=== PATIENT | female | born 1985 | race Native Hawaiian/Other Pacific Islander ===

== ENCOUNTER 2017-01-06 00:18 | Emergency (ER) | payer OTHER ==
[~2017-01-06] VITALS: Ht 160 cm; Wt 93.0 kg
[~2017-01-06 00:18] MED LIST: CELEXA20 MG OR; SINGULAIR10 MG PO; XOPENEX HFA IN; XOPENEX1.25 MG/3 IN
[2017-01-06] MEDS ORDERED: BUPROPN HCL300 MG PO (00:32)
[2017-01-06] MEDS ORDERED: ALLEGRA-D 2424 HOUR PO (00:34)
[2017-01-06 01:15] VITALS: BP 131/89; TEMP 97.9
== END 2017-01-06 01:20 | disposition home or self-care (01) ==
LOC: ED 00:18
DX: J45.901 Unspecified asthma with (acute) exacerbation (principal)
CPT/HCPCS: 99283; J2060

== ENCOUNTER 2017-12-21 12:45 | Inpatient (IN) | payer OTHER ==
[~2017-12-21] VITALS: Ht 160 cm; Wt 103.1 kg
[~2017-12-21 12:45] MED LIST changes: +ALLEGRA-D 2424 HOUR PO; +BUPROPN HCL300 MG PO
[2017-12-21 12:50] VITALS: BP 139/87; TEMP 97.7
[2017-12-21 15:48] VITALS: BP 148/91; TEMP 98.2; Ht 160 cm; Wt 103.1 kg
[2017-12-21 15:56] LABS: PLATELET COUNT 260 K/uL (152-353)
[2017-12-21] MEDS ORDERED: FLUTMIS14 INH ×2 (16:02→18:36)
[2017-12-21 16:10] LABS: POTASSIUM 3.7 mmol/L (3.6-5.2)
[2017-12-21] MEDS ORDERED: ALLEGRA ALRG180 M1 PO (18:35)
[2017-12-21] MEDS ORDERED: XOPENEX0.31 MG INH (18:36)
[2017-12-21 20:00] VITALS: BP 155/87; TEMP 98
[2017-12-22] VITALS: BP 101/54; TEMP 97.7
[2017-12-22 04:00] VITALS: BP 129/77; TEMP 97.6
[2017-12-22 05:41] LABS: PLATELET COUNT 295 K/uL (152-353)
[2017-12-22 05:56] LABS: POTASSIUM 3.8 mmol/L (3.6-5.2)
[2017-12-22 20:00] VITALS: BP 151/84; TEMP 97.5
[2017-12-23] VITALS: BP 135/74; TEMP 97.4
[2017-12-23 03:52] VITALS: BP 99/52; TEMP 98.8
[2017-12-23 06:07] LABS: POTASSIUM 3.5 mmol/L (3.6-5.2)
[2017-12-23 06:24] LABS: PLATELET COUNT 304 K/uL (152-353)
[2017-12-23] MEDS ORDERED: MONT10TA PO (07:56)
[2017-12-23] MEDS ORDERED: MEDROL DOSEPAK4 MG PO (07:56)
[2017-12-23] MEDS ORDERED: XOPENEX HFA IN (07:56)
[2017-12-23] MEDS ORDERED: LEVO250T2 PO (07:56)
[2017-12-23 08:23] VITALS: BP 142/80; TEMP 98.5
--- NOTE | 2017-12-23 10:35 | NUR ---
DC INSTRUCTIONS GIVEN TO PT. PT VERBALIZED UNDERSTANDING. IV DC'D WITH CANNULA INTACT AND SITE CARE PROVIDED. PT AWAITING MEDS TO BE FILLED AT PHARMACY BEFORE LEAVING
--- NOTE | 2017-12-23 10:51 | NUR ---
PT LEFT AMBULATORY WITH TECH AT THIS TIME
[2017-12-23 13:12] VITALS: BP 139/80; TEMP 98.7
== END 2017-12-23 10:00 | disposition home or self-care (01) | DRG 202 ==
LOC: ED 12:45 → MED/SURG 13:40
DX: J45.901 Unspecified asthma with (acute) exacerbation (principal); J98.11 Atelectasis; J45.902 Unspecified asthma with status asthmaticus
CPT/HCPCS: 36415; 80053; 82948; 85027; 94640; 94664; 94668; 94760; 96365; 96366; 96375; 99283; J0132; J1100; J1815; J1885; J1956; J2920

== ENCOUNTER 2019-11-10 12:10 | Inpatient (IN) | payer OTHER ==
[~2019-11-10] VITALS: Ht 160 cm; Wt 101.6 kg
[~2019-11-10 12:10] MED LIST changes: +ALLEGRA ALRG180 M1 PO; +FLUTMIS14 INH; +LEVO250T2 PO; +MEDROL DOSEPAK4 MG PO; +MONT10TA PO; +XOPENEX0.31 MG INH
[2019-11-10 15:16] LABS: PLATELET COUNT 207 K/uL (152-353)
[2019-11-10 15:21] LABS: POTASSIUM 3.2 mmol/L (3.6-5.2)
[2019-11-10 17:02] VITALS: BP 135/74; TEMP 97.9; Ht 160 cm; Wt 101.6 kg
[2019-11-10] MEDS ORDERED: CLARITIN10 M1 PO (17:20)
[2019-11-10] MEDS ORDERED: NEXIUM20 M1 PO (17:22)
[2019-11-10] MEDS ORDERED: BUDE1AER5 INH (17:25)
[2019-11-10] MEDS ORDERED: VITAMIN D PO (17:26)
--- NOTE | 2019-11-10 18:36 | NUR ---
@ 1330 PT WAS ADMITTED TO [facility] PREESURE ROOM 1116 IN STABLE CONDITION. PT A/A/O X 3. NO DISTRESS NOTED UPON ARRIVAL. NO VISITORS ALLOWED AT THIS TIME DUE TO COVID 19. PT ALLERGIC TO PCN; SEAFOOD; ALBUTEROL. TELEMETRY APPLIED WITH O2 MONITORING. PT WAS ORIENTED TO ROOM AND CALL LIGHT SYSTEM. PT WAS INSTRUCTED TO WEAR A MASK WHEN THE STAFF IS IN THE ROOM. PT VERBALIZED UNDERSTANDING.
--- NOTE | 2019-11-10 20:00 | NUR ---
pt performing I.S. ON HER OWN AT 1500 ML. NURSING WILL CONT. TO MONITOR PT'S PROGRESS.
[2019-11-11] VITALS: BP 129/86; TEMP 98.8
[2019-11-11 04:00] VITALS: BP 133/71; TEMP 98.8
[2019-11-11 05:35] LABS: PLATELET COUNT 206 K/uL (152-353)
[2019-11-11 05:56] LABS: POTASSIUM 4.1 mmol/L (3.6-5.2)
[2019-11-11 07:45] VITALS: TEMP 99
[2019-11-11 12:00] VITALS: BP 132/69; TEMP 98.7
[2019-11-11] MEDS ORDERED: AZIT250T3 PO (12:30)
[2019-11-11] MEDS ORDERED: CEFDINIR300 MG PO (12:31)
[2019-11-11] MEDS ORDERED: MUCINEX600 MG PO (12:31)
--- NOTE | 2019-11-11 13:20 | NUR ---
1245 NOTIFIED ADMIN CONCERNING PT BEING DISCHARGED AND HOME MEDS. WAS IN STRUCTED TO CONTACT DILIP LI IN PHARM. NOTIFIED Sonia LI AND PT WAS SENT HOME WITH ALL NEW RX'S. PT REC'D AM DOSE PRIOR TO DISCHARGE. ENOUGH MEDS GIVEN THROUGH WEDNESDAY AM. PT WILL CONTACT PHARM ON WEDNESDAY AND REST OF THE MEDS WILL BE GIVEN ON WEDNESDAY. ALL INSTRUCTIONS GIVEN TO PT AND PT VERBALIZED UNDERSTANDING.
== END 2019-11-11 14:20 | disposition home or self-care (01) | DRG 866 ==
LOC: MED/SURG 12:10
PROVIDERS: ADMIT Internal Medicine Endocrinology, Diabetes & Metabolism
DX: B97.29 Other coronavirus as the cause of diseases classified elsewhere (principal); J45.998 Other asthma; E87.6 Hypokalemia; K21.9 Gastro-esophageal reflux disease without esophagitis
CPT/HCPCS: 80053; 81000; 85027; 94760; J0456; J0696; J1650

== ENCOUNTER 2019-11-21 10:45 | Outpatient (CLI) | payer OTHER ==
[~2019-11-21 10:45] MED LIST changes: +AZIT250T3 PO; +BUDE1AER5 INH; +CEFDINIR300 MG PO; +CLARITIN10 M1 PO; +MUCINEX600 MG PO; +NEXIUM20 M1 PO; +VITAMIN D PO
[2019-11-21 13:35] LABS: PLATELET COUNT 280 K/uL (152-353)
[2019-11-21 14:04] LABS: POTASSIUM 3.4 mmol/L (3.6-5.2)
== END 2019-11-21 22:33 | disposition home or self-care (01) ==
LOC: LABW 10:45 → LAB 14:27 → LABW 22:33
PROVIDERS: Internal Medicine
DX: U07.1 COVID-19 (principal)
CPT/HCPCS: 36415; 80053; 85027; 87635; G2023; U0002